=== PATIENT | male | born 1940 | race Caucasian/White ===

== ENCOUNTER 2018-09-02 13:55 | Outpatient (CLI) | payer MEDICARE, OTHER ==
--- NOTE | 2018-09-02 15:37 | RAD ---
CERVICAL SPINE: 09/02/18 Four views. Lateral views were obtained in neutral, flexion, extension positions. INDICATIONS: Neck pain. COMPARISON: Comparison made to cervical spine films of 09/02/16. Large anterior bridging osteophytes are seen with evidence of anterior longitudinal ligament ossifica tion at C2, C3 and C4. A large anterior osteophyte at C4-5. These appear stable. Ossification anterio r longitudinal ligament also seen at C4-5 and C5-6, stable in appearance. Posterior alignment is pres erved and unchanged. No significant change in position with flexion and extension. 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 The findings appe ar stable from the exam of 2017. POS: [facility]
--- NOTE | 2018-09-02 16:55 | MRI ---
FExam: MRI cervical spine without contrast HISTORY: Chronic neck pain, x1-2 years. COMPARISON: 09/02/2016 FINDINGS: Appropriate T1 marrow signal intensity of the cervical vertebra. Stable fusion type changes from C5- C6 through C6-C7. Interval T1 hypointense, T2 hyperintensity at the tip of the odontoid process which may be on the basis of degenerative change. No significant STIR hyperintensity to suggest vertebral body edema or ligamentous injury Visualized brain parenchyma, cervical medullary junction, cervical cord and the upper thoracic cord a re normal size and signal intensity. C2-C3: No significant disc osteophyte complex. No significant central canal stenosis. Neural foramina are patent C3-C4: No significant disc osteophyte complex. No significant central canal stenosis. Hypertrophic ch anges in the uncovertebral joints and facets result in mild bilateral foraminal narrowing. C4-C5: Central disc protrusion with associated disc desiccation result in mild central canal stenosis . Bilateral uncovertebral and facet hypertrophic changes result in mild bilateral foraminal narrowing . C5-C6: Partial fusion of the disc space level. No high-grade central canal stenosis. Mild right kelin inal narrowing due to uncovertebral hypertrophy. Left neural foramen is patent. C6-C7: Partial fusion of the disc space. No significant central canal stenosis or neural foraminal na rrowing. C7-T1: No significant central canal stenosis or neural foraminal narrowing. Prominent anterior osteophyte at T1-T2. IMPRESSION: 1. Essentially stable degenerative changes of the cervical spine. There is no evidence of high-grad e central canal stenosis. Varying degrees of foraminal narrowing as detailed above. 2. Stable partial fusion of C5-C6 and C6-C7.
== END 2018-09-02 13:56 | disposition home or self-care (01) ==
LOC: SCSMRI 13:55
PROVIDERS: ATTEND Nurse Practitioner Family
DX: M47.812 Spondylosis without myelopathy or radiculopathy, cervical region (principal); M48.02 Spinal stenosis, cervical region; Z98.1 Arthrodesis status
CPT/HCPCS: 72040; 72141

== ENCOUNTER 2019-02-01 11:28 | Outpatient (CLI) | payer MEDICARE, OTHER ==
[2019-02-01 13:34] LABS: Hemoglobin 15.5 g/dL (14.0-18.0); Mean Corpuscular HGB CONC 34.5 g/dL (32.0-36.0); Mean Corpuscular Hemoglobin 32.3 pg (27.0-31.0); Mean Corpuscular Volume 93.6 fL (78.0-98.0); Mean Platelet Volume 9.4 fL (7.4-10.4); Platelet Count 157 thou/uL (130-400); RBC Distribution Width 11.6 % (11.5-14.5); White Blood Cell (WBC) Count 6.5 thou/uL (4.8-10.8)
[2019-02-01 13:35] LABS: Bilirubin Negative (Negative); Blood, Urine Negative (Negative); Clarity Clear (Clear); Glucose, Urine (Dipstick) Normal (Negative); Leukocyte Negative Leu/uL (Negative); Nitrite Negative (Negative); Protein, Urine (Dipstick) Negative (Neg-Trace); RBC/HPF 0-3 HPF (0-3); Squamous Epithelial None Seen HPF (0-3); Urobilinogen Normal mg/dL (Less than 2); WBC/HPF 0-3 HPF (0-3)
[2019-02-01 13:42] LABS: INR-International Normal Ratio 1.1; PTT 31.4 SEC (22.9-36.1); Prothrombin Time 13.7 SEC (12.0-14.7)
[2019-02-01 13:43] LABS: Bacteria/HPF None Seen HPF (None Seen)
[2019-02-01 13:56] LABS: Anion Gap 13 mmol/L (10-20); BUN (Urea Nitrogen) 18 mg/dL (8.4-25.7); Calc. Creatinine Clearance 0 mL/min (70-130); Calcium 9.9 mg/dL (7.8-10.44); Carbon Dioxide 25 mmol/L (23-31); Chloride 107 mmol/L (98-107); Estimated GFR-MDRD 74; Glucose 85 mg/dL (83-110); Sodium 141 mmol/L (136-145)
--- NOTE | 2019-02-02 17:19 | EKG ---
Test Reason : Blood Pressure : / mmHG Vent. Rate : 085 BPM Atrial Rate : 085 BPM P-R Int : 164 ms QRS Dur : 100 ms QT Int : 360 ms P-R-T Axes : 034 041 033 degrees QTc Int : 428 ms Sinus rhythm with occasional Premature ventricular complexes Non-specific intra-ventricular conduction delay Otherwise normal ECG Confirmed by SARAH DORAN ([id number]) on 02/02/2019 5:18:38 PM Referred By: HALI Confirmed By:SARAH DORAN
== END 2019-02-01 11:29 | disposition home or self-care (01) ==
LOC: LABBT 11:28
PROVIDERS: ATTEND Urology
DX: Z01.818 Encounter for other preprocedural examination (principal); N40.1 Benign prostatic hyperplasia with lower urinary tract symptoms; R35.1 Nocturia
CPT/HCPCS: 80048; 81001; 85027; 85610; 85730; 87086; 93005; 93010

== ENCOUNTER 2019-02-12 17:14 | Emergency (ER) | payer MEDICARE, OTHER | END 2019-02-12 17:44 | disposition home or self-care (01) | LOC: SCSER 17:14 | DX: N39.9 Disorder of urinary system, unspecified (principal); I10 Essential (primary) hypertension; Z87.891 Personal history of nicotine dependence; Z79.899 Other long term (current) drug therapy ==

== ENCOUNTER 2019-03-02 06:41 | Day surgery (SDC) | payer MEDICARE, OTHER ==
[2019-03-02] MEDS ORDERED: Levofloxacin 500 mg/D5W 100 ml Premix Bag ONE (07:43)
[2019-03-02] MEDS ORDERED: Midazolam HCl 2 mg/2 ml Vial ONE (08:28)
[2019-03-02] MEDS ORDERED: Propofol 500 MG/50 ML VIAL ONE (08:28)
--- NOTE | 2019-03-02 10:02 | OP ---
DATE OF PROCEDURE: 03/02/2019 SERVICE: Urology. PREOPERATIVE DIAGNOSIS: Benign prostatic hyperplasia. POSTOPERATIVE DIAGNOSIS: Benign prostatic hyperplasia. PROCEDURE PERFORMED: UroLift. INDICATIONS FOR PROCEDURE: Mr. Yang is a 78-year-old white male with BPH and urinary complaints. He is currently taking Flomax, which has not completely alleviated his symptoms. We worked him up for UroLift, which he appeared to be a candidate for. Risks and benefits were discussed and he has agreed to proceed forward. DESCRIPTION OF PROCEDURE: After identification of armband and verification of consent, the patient was brought back to the operating room, where he underwent total intravenous anesthesia. He was then placed in dorsal lithotomy position. He was prepped and draped in usual sterile fashion. After appropriate time-out, a lubricated 21-Brazilian rigid cystoscope was induced per urethra into the bladder. The prostate was hypertrophic with trilobar hypertrophy, which had been previously demonstrated on outpatient cystoscopy. The obturator for the cystoscope was switched out for the UroLift device. The initial implant was placed on the patient's left towards the bladder neck. The UroLift was positioned approximately 2 cm proximal to the bladder neck and then compressed laterally for adequate compression with the hands dropped down to get a lift on the prostate. Safety was released and the blue trigger fired followed by the parish trigger to deploy the needle and the Nitinol tab. The UroLift was then advanced forward approximately 1 to 1.5 cm until the white line to be seen in the keyhole, at which point the steel tab was delivered by releasing the blue trigger on the back of the UroLift device. This same procedure was replicated on the opposite side towards the bladder neck on the patient's right and subsequently two additional implants placed on the right and left near the verumontanum. The prostate was quite wide open at this point, but there was still a bulge on the patient's right lateral aspect of the prostate midway, so an additional 5th implant was delivered at that point, which did result in a nice channel all the way up into the bladder. There was a very minor bulge at the bladder neck, where the left proximal implant was just a little bit distal away from the bladder neck resulting in a small bulge. We filled the bladder to capacity, which caused the bulge to completely disappear, which indicates that the patient will likely have resolution of this while the patient is voiding. I do not think any further implants would be necessary and that small bulge at the proximal bladder neck would likely result in a steel tab way far too close to the bladder neck causing significant problems and irritation, as such the procedure was felt to be finished and the cystoscope was removed. An 18-Brazilian Hernandez catheter was placed in the patient's bladder with 10 mL of sterile water in the balloon. The patient had his bladder irrigated. He was then taken out of lithotomy, awakened, taken to PACU for recovery in stable condition. COMPLICATIONS: None. ESTIMATED BLOOD LOSS: Minimal. RETAINED TUBES AND DRAINS: An 18-Brazilian Hernandez catheter. SPECIMENS: None. IMPLANTS: Five UroLift implants placed. DISPOSITION: The patient will be discharged home and follow up with me in approximately 1 to 2 weeks for postop check following a void trial in the PACU area. Job ID: [id number]
[2019-03-02] MEDS ORDERED: Phenazopyridine HCl 97.5 MG TABLET ONE (10:10)
[2019-03-02] MEDS ORDERED: PROPOFOL 200 MG/20 ML VIAL ONE (10:19)
[2019-03-02] MEDS ORDERED: HYDROcodone/Acetaminophen 5/325 mg Tablet ONE (10:29)
== END 2019-03-02 12:40 | disposition home or self-care (01) ==
LOC: SDC 06:41
PROVIDERS: ATTEND Urology
PROC: 0T7D8DZ Dilation of Urethra with Intraluminal Device, Via Natural or Artificial Opening Endoscopic (ICD-10-PCS; principal; 2019-03-02)
DX: N40.1 Benign prostatic hyperplasia with lower urinary tract symptoms (principal); K21.9 Gastro-esophageal reflux disease without esophagitis; I10 Essential (primary) hypertension; M19.90 Unspecified osteoarthritis, unspecified site; Z79.899 Other long term (current) drug therapy
CPT/HCPCS: C1889; J1956; J2250; J2704

== ENCOUNTER 2019-04-18 08:12 | Outpatient (CLI) | payer MEDICARE, OTHER ==
--- NOTE | 2019-04-18 09:29 | RAD ---
LEFT WRIST THREE VIEWS: HISTORY: Left wrist pain. FINDINGS: Degenerative changes are present. 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 No acute fracture, dislocati on or bony destruction is identified. POS: OFF
== END 2019-04-18 08:13 | disposition home or self-care (01) ==
LOC: SCSRAD 08:12
PROVIDERS: ATTEND Family Medicine
DX: M25.532 Pain in left wrist (principal)

== ENCOUNTER 2021-02-04 12:58 | Outpatient (CLI) | payer MEDICARE, OTHER ==
[2021-02-04 14:54] LABS: Hemoglobin 14.8 g/dL (13.5-17.5); Mean Corpuscular Hemoglobin 31.3 pg (27.0-33.0); Mean Corpuscular Volume 94.7 fl (81.2-95.1); Mean Platelet Volume 11.1 fl (7.4-10.4); Platelet Count 172 10x3/uL (150-450); RBC Distribution Width 12.3 % (11.5-14.5); Red Blood Cell (RBC) Count 4.73 10x6/uL (4.32-5.72); White Blood Cell (WBC) Count 5.8 10x3/uL (3.5-10.5)
[2021-02-04 15:08] LABS: PTT 26.3 sec (22.0-33.0); Prothrombin Time 11.4 sec (9.5-12.1)
[2021-02-04 15:09] LABS: Anion Gap 14 mmol/L (10-20); BUN (Urea Nitrogen) 19 mg/dL (8.4-25.7); Calc. Creatinine Clearance 0 mL/min (70-130); Calcium 10.5 mg/dL (7.8-10.44); Carbon Dioxide 30 mmol/L (23-31); Chloride 104 mmol/L (98-107); Glucose 89 mg/dL (83-110); Potassium 5.6 mmol/L (3.5-5.1); Sodium 142 mmol/L (136-145)
[2021-02-04 16:26] LABS: Bilirubin Neg (Negative); Blood, Urine Negative (Negative); Clarity Clear (Clear); Glucose, Urine (Dipstick) Normal (Negative); Ketone, Urine Negative (Negative); Leukocyte Negative (Negative); Nitrite Negative (Negative); Protein, Urine (Dipstick) Negative (Neg-Trace); Urobilinogen Normal mg/dL (Less than 2)
[2021-02-04 19:08] LABS: RBC/HPF None Seen HPF (0-3); Squamous Epithelial 0-3 HPF (0-3); WBC/HPF 0-3 HPF (0-3)
[2021-02-04 19:09] LABS: Bacteria/HPF Rare-Few HPF (None Seen)
[2021-02-05 11:16] LABS: SARS-CoV-2 PCR by NAA Not Detected (NotDetected)
== END 2021-02-04 12:59 | disposition home or self-care (01) ==
LOC: LABBT 12:58
PROVIDERS: ATTEND Urology
DX: Z01.818 Encounter for other preprocedural examination (principal); Z20.822 Contact with and (suspected) exposure to COVID-19
CPT/HCPCS: 80048; 81001; 85027; 85610; 85730; 87086; 93005; U0003; U0005; 93010

== ENCOUNTER 2021-02-07 06:16 | Day surgery (SDC) | payer MEDICARE, OTHER ==
[2021-02-06 14:36] VITALS: BMI 27.1
[2021-02-07] MEDS ORDERED: Levofloxacin 500 mg/D5W 100 ml Premix Bag ONE (07:19)
[2021-02-07] MEDS ORDERED: B & O 30 MG SUPP ONE (08:22)
[2021-02-07] MEDS ORDERED: Fentanyl 100 MCG/2 ML VIAL ONE (08:28)
[2021-02-07] MEDS ORDERED: Lidocaine 1% PF 5 ML VIAL ONE (08:38)
[2021-02-07] MEDS ORDERED: PROPOFOL 200 MG/20 ML VIAL ONE (08:38)
[2021-02-07] MEDS ORDERED: HYDROcodone/Acetaminophen 5/325 mg Tablet ONE ×2 (09:51→10:53)
[2021-02-07] MEDS ORDERED: hydrALAZINE 20 MG/ML VIAL ONE (12:36)
== END 2021-02-07 13:40 | disposition home or self-care (01) ==
LOC: SDC 06:16
PROVIDERS: ATTEND Urology
PROC: 0T7D8DZ Dilation of Urethra with Intraluminal Device, Via Natural or Artificial Opening Endoscopic (ICD-10-PCS; principal; 2021-02-07)
DX: N40.1 Benign prostatic hyperplasia with lower urinary tract symptoms (principal); N13.8 Other obstructive and reflux uropathy; R39.12 Poor urinary stream; R39.14 Feeling of incomplete bladder emptying; I10 Essential (primary) hypertension; M19.90 Unspecified osteoarthritis, unspecified site; K21.9 Gastro-esophageal reflux disease without esophagitis; M45.6 Ankylosing spondylitis lumbar region; Z87.891 Personal history of nicotine dependence; Z79.899 Other long term (current) drug therapy
CPT/HCPCS: C9740; L8699; J0360; J1956; J2704; J3010

== ENCOUNTER 2021-06-13 09:07 | Outpatient (CLI) | payer MEDICARE, OTHER ==
[2021-06-13] MEDS ORDERED: Iopamidol 370 76% 100 ML VIAL ONE (14:33)
== END 2021-06-13 09:08 | disposition home or self-care (01) ==
LOC: CT 09:07
PROVIDERS: ATTEND Physician Assistant Medical
DX: K57.92 Diverticulitis of intestine, part unspecified, without perforation or abscess without bleeding (principal); R10.84 Generalized abdominal pain; K57.30 Diverticulosis of large intestine without perforation or abscess without bleeding; K59.09 Other constipation; N40.0 Benign prostatic hyperplasia without lower urinary tract symptoms; N32.89 Other specified disorders of bladder; N28.1 Cyst of kidney, acquired; Z96.0 Presence of urogenital implants
CPT/HCPCS: 74177; Q9967

== ENCOUNTER 2023-12-24 10:15 | Outpatient (CLI) | payer MEDICARE, OTHER | END 2023-12-24 10:16 | disposition home or self-care (01) | LOC: SCSRAD 10:15 | PROVIDERS: ATTEND Family Medicine | DX: M25.561 Pain in right knee (principal); M25.562 Pain in left knee; G89.29 Other chronic pain; M17.0 Bilateral primary osteoarthritis of knee | CPT/HCPCS: 73565 ==